=== PATIENT | male | born 1975 | race African-American/Black ===

== ENCOUNTER 2017-01-25 18:08 | Emergency (ER) | payer OTHER | END 2017-01-25 20:40 | disposition home or self-care (01) | LOC: FER 18:08 | DX: J18.9 Pneumonia, unspecified organism (principal); M54.2 Cervicalgia; M54.9 Dorsalgia, unspecified; Z91.041 Radiographic dye allergy status; Z79.899 Other long term (current) drug therapy | CPT/HCPCS: 71020; 86403; 87070; 87077; 87186; 87205; 94640; 94760 ==